=== PATIENT | male | born 1960 | race Caucasian/White ===

== ENCOUNTER 2023-05-05 13:11 | Outpatient (CLI) | payer OTHER, SELFPAY ==
--- NOTE | ~2023-05-05 | PE_ITS ---
EXAMINATION: PET_PETPSMAST_PT DATE: 05/05/2023 15:59 INDICATION: Malignant neoplasm of prostate. TECHNIQUE: 9.337 mCi of piflufolastat F-18 was administered intravenously. Low dose computed tomograp hy (CT) images were acquired from the base of the brain to the proximal thighs for attenuation correc tion and anatomic localization. Automated exposure control was employed. Dose-length product (DLP) wa s 549 mGy-cm. Positron emission tomography (PET) images were acquired in the same distribution. COMPARISON: None FINDINGS: Head/neck: There are no pathologically enlarged lymph nodes. Chest: A calcified left lung nodule and calcified left hilar lymph nodes are consistent with old gran ulomatous disease. No pleural effusion. The heart size is normal. No pericardial effusion. There are no pathologically enlarged lymph nodes. Abdomen/pelvis/proximal thighs: The liver, gallbladder, spleen, pancreas, adrenal glands, and kidneys are normal. There are no dilated loops of bowel. The appendix is normal. There are no pathologically enlarged lymph nodes. There is no free intraperitoneal fluid. The prostate is normal in size. There is increased activity in the peripheral zone on the left with maximum SUV of 25.6. There is no osseou s malignancy. IMPRESSION: 1. Focal increased activity in the prostate in the peripheral zone on the left, consistent with prima ry malignancy. No evidence of metastatic disease. Reviewed, dictated and finalized at location A. IMPRESSION: 1. Focal increased activity in the prostate in the peripheral zone on the left, consistent with primary malignancy. No evidence of metastatic disease.
== END 2023-05-05 13:12 | disposition home or self-care (01) ==
LOC: ANHIMG 13:24
PROVIDERS: Visit Provider Urology
DX: C61 Malignant neoplasm of prostate (principal)
CPT/HCPCS: 78815; A9595